=== PATIENT | female | born 1950 | race Caucasian/White ===

== ENCOUNTER 2023-09-13 11:07 | Day surgery (SDC) | payer MEDICARE, SELFPAY ==
--- NOTE | 2023-09-12 10:30 | HO.ANESPROP2 ---
HPI - Anesthesia Eval Consult details Narrative: 73yo F for Colonoscopy [facility] Past Medical History Medical History (Updated 09/12/23 @ 10:23 by Meredith Brooks, RN) Diverticulosis Hemorrhoids Elevated IOP Hyperlipidemia HTN (hypertension) Surgical History Surgical History (Updated 09/12/23 @ 10:24 by Meredith Brooks, RN) History of back surgery History of partial hysterectomy Hx of cholecystectomy H/O colonoscopy Meds Allergies Allergy/AdvReac Type Severity Reaction Status Date / Time No Known Allergies Allergy Verified 09/12/23 10:25 Home Medications Medication Instructions Recorded Confirmed Last Taken Type atorvastatin 10 mg tablet 10 mg PO DAILY 09/12/23 09/12/23 Unknown History bimatoprost 0.01 % eye drops 1 drp ophthalmic (eye) DAILY 09/12/23 09/12/23 Unknown History (Lumigan) calcium 600 mg capsule mg PO 09/12/23 Unknown History estradiol 0.075 mg/24 hr weekly 1 patch transdermal QWEEK 09/12/23 09/12/23 Unknown History transdermal patch gabapentin 100 mg capsule 100 mg PO DAILY 09/12/23 09/12/23 Unknown History latanoprost 0.005 % eye drops 1 drp ophthalmic (eye) DAILY 09/12/23 09/12/23 Unknown History (Xalatan) lisinopril 5 mg tablet 5 mg PO DAILY 09/12/23 09/12/23 Unknown History metoprolol tartrate 50 mg tablet 50 mg PO DAILY 09/12/23 09/12/23 Unknown History Assessment and Plan Assessment Anesthesia Assessment: Chart Reviewed
[2023-09-13 11:26] VITALS: BMI 32.3
[2023-09-13 11:51] VITALS: BP 164/83; PULSE 73; RESP 16; TEMP 36.5; O2SAT 98
[2023-09-13] MEDS: Lactated Ringers 1,000 ML 100 ML IVCONT (11:52)
--- NOTE | 2023-09-13 13:04 | MHC.SHP ---
Pre-Procedural Eval Section A - 24 Hr Update-Section A only Date of Service: 09/13/23 Section B - Complete if H&P > 30 days Chief Complaint: Encounter for screening for malignant neoplasm of Details of Present Illness: see H&P no changes Relevant Family History (Specify if Yes): No Relevant Social History: None Present Medications: None Medical History: Significant History History of Previous Operations: No relevant previous surgery Allergies: Allergies Allergy/AdvReac Type Severity Reaction Status Date / Time No Known Allergies Allergy Verified 09/12/23 10:25 Review of Systems Sugical H&P ROS: Negative: Constitution, Cardiovascular, Respiratory, Neurological, Psychiatric, Hem-Onc, Allergic/Immunologic, Gastrointestinal, Genitourinary, Musculoskeletal, Integumentary, Endocrine and Eyes/Ears/Nose/Throat Exam Surgical H&P Exam: Normal: HEENT, Normal: Heart, Normal: Lungs, Normal: Extremities, Normal: Abdomen, Normal: Skin and Normal: Neurological Plan Diagnosis/Plan: Unchanged I have reviewed the history and physical and performed a pertinent physical examination on my patient. No changes have occurred unless specified. Time Spent With Patient Time: Total time managing care of this patient today ____ minutes.
[2023-09-13 14:02] VITALS: BP 129/80; PULSE 76; RESP 16; TEMP 36.2; O2SAT 98
[2023-09-13 14:18] VITALS: BP 125/83; PULSE 65; RESP 18; TEMP 36.2; O2SAT 99
--- NOTE | 2023-09-13 14:27 | OP_ITS ---
DATE OF SERVICE: 09/13/2023 SURGEON: Derek Brewster MD INDICATIONS: Colon cancer screening. PREOPERATIVE DIAGNOSIS: POSTOPERATIVE DIAGNOSIS: PROCEDURE PERFORMED: Colonoscopy to the cecum with snare polypectomy. ESTIMATED BLOOD LOSS: COMPLICATIONS: ANESTHESIA: Monitored anesthesia care. ASSISTANTS: SPECIMENS: DESCRIPTION OF PROCEDURE: History and physical performed. The risks and benefits of the procedure were explained to the patient. Informed consent was obtained. The patient was placed in the left lateral decubitus position. A digital rectal exam was performed and was found to be normal. The Olympus pediatric videocolonoscope was introduced into the rectum and advanced to the cecum. The cecum was identified by transillumination, palpation, and identification of ileocecal valve. Examination was performed. The scope was removed. She tolerated the procedure well. She returned to recovery room in stable condition. FINDINGS: The terminal ileum was not examined. The visualized colonic mucosa was within normal limits without evidence of masses. There was some stool coating mucosa in the right colon and proximal colon, limiting the sensitive examination for detection of small polyps. This was washed and suctioned as best possible. A single polyp in the rectum measuring less than 10 mm was removed with a cold snare and recovered via suction. No other polyps were identified. There were moderate sized internal hemorrhoids noted on retroflexed exam. There was diverticulosis involving the sigmoid. IMPRESSION: Colon polyp. RECOMMENDATION: Follow up the biopsy results. MD ELIZ Gusman/CATHRYN / [id number]
== END 2023-09-13 14:35 | disposition home or self-care (01) ==
PROVIDERS: PCP Internal Medicine; Visit Provider Internal Medicine Gastroenterology
PROC: 0DJD8ZZ Inspection of Lower Intestinal Tract, Via Natural or Artificial Opening Endoscopic (ICD-10-PCS; CPT 45378; principal; 2023-09-13 13:20)
DX: Z12.11 Encounter for screening for malignant neoplasm of colon (principal); D12.8 Benign neoplasm of rectum; K57.30 Diverticulosis of large intestine without perforation or abscess without bleeding; K64.8 Other hemorrhoids; I10 Essential (primary) hypertension; E78.5 Hyperlipidemia, unspecified; Z79.02 Long term (current) use of antithrombotics/antiplatelets; Z79.899 Other long term (current) drug therapy
CPT/HCPCS: 45385; 88305; J2704